=== PATIENT | female | born 2000 | race Caucasian/White ===

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

== ENCOUNTER 2021-01-21 10:11 | Outpatient (CLI) | payer BC, SELFPAY ==
--- NOTE | 2021-01-21 10:15 | MR_ITS ---
WS: [id number] MRI HEAD WITH CONTRAST TECHNIQUE: Sagittal T1, T2 axial, T2 axial FLAIR, axial susceptibility weighted imaging, axial diffus ion weighted images, and coronal T2 images were obtained. Pre and post-T1 axial and post T1 coronal i mages. ADC and FSPGR images. 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 COMPARISON: None. FINDINGS: No evidence of restricted diffusion to suggest acute ischemia. Ventricular system and basal cisterns are patent. Normal julio-white differentiation. No suspicious intracranial signal abnormalities. Bhumi l posterior fossa. Normal vascular flow voids at the skull base. No extra axial fluid collections. No evidence of mass or mass effect. No hemosiderin on susceptibly weighted images. Normal optic chiasm and pituitary infundibulum. Temporal lobes and hippocampal formations are normal in appearance. No abnormal intracranial enhancement. Normal dural venous sinuses. Normal cavernous si nuses and Meckel's cave. MR/MR head wo/w con [id number] IMPRESSION: 1. No evidence of restricted diffusion to suggest acute ischemia. 2. No suspicious intracranial signal abnormalities. Normal julio-white differen tiation. 3. No significant parenchymal volume loss. Normal posterior fossa. 4. Paranasal sinuses and mastoid air cells well aerated. 5. No abnormal intracranial enhancement. 6. Normal optic chiasm and pituitary infundibulum.
[2021-01-21] MEDS: gadobenate dimeglumine 20 mL vial IV (10:54)
== END 2021-01-21 10:12 | disposition home or self-care (01) ==
LOC: RADSHAW 10:13
PROVIDERS: PCP Pediatrics; Visit Provider Nurse Practitioner
DX: G43.709 Chronic migraine without aura, not intractable, without status migrainosus (principal)
CPT/HCPCS: 70553; A9577

== ENCOUNTER → 2022-01-09 15:41 | Outpatient (BNVA) | payer MEDICAID, SELFPAY | PROVIDERS: PCP Pediatrics; Visit Provider Nurse Practitioner | DX: R56.9 Unspecified convulsions (principal); R11.15 Cyclical vomiting syndrome unrelated to migraine; Z33.1 Pregnant state, incidental | CPT/HCPCS: 99213; 99214 ==

== ENCOUNTER → 2022-01-26 10:37 | Outpatient (BNVA) | payer MEDICAID, SELFPAY | PROVIDERS: PCP Pediatrics; Referring Provider Nurse Practitioner; Visit Provider Specialist | DX: R56.9 Unspecified convulsions (principal) | CPT/HCPCS: 95812; 95816 ==

== ENCOUNTER → 2022-09-06 11:23 | Outpatient (BNVA) | payer MEDICAID, SELFPAY | PROVIDERS: PCP Pediatrics; Visit Provider Nurse Practitioner | DX: G40.909 Epilepsy, unspecified, not intractable, without status epilepticus (principal); Z82.0 Family history of epilepsy and other diseases of the nervous system | CPT/HCPCS: 99213 ==